=== PATIENT | male | born 1950 | race Caucasian/White ===

== ENCOUNTER 2018-01-19 17:32 | Inpatient (IN) | payer MEDICARE ==
[2018-01-19 17:40] VITALS: BP 112/73
[2018-01-19 20:33] LABS: CHOLESTEROL 104 mg/dL (<200); HDL -HIGH DENSITY LIPOPROTEIN 36 mg/dL (23-92); TRIGLYCERIDES 59 mg/dL (<150)
[2018-01-19] MEDS ORDERED: Magnesium Hydroxide (MOM) 30 mL UDC PO PRN (22:36)
--- NOTE | 2018-01-19 23:06 | Psychiatric Evaluation ---
DATE OF SERVICE: 01/19/2018 IDENTIFYING DATA: The patient is a 67-year-old male, currently homeless. Information obtained by directly interviewing the patient as well as reviewing the admission papers and they are reliable. JUSTIFICATION OF HOSPITALIZATION: The patient is admitted here on a 5150 as a danger to self. CHIEF COMPLAINT: "I have been feeling depressed and I wanted to end my life." HISTORY OF PRESENT ILLNESS: This is the first psychiatric hospitalization to this hospital for this patient who is reported to have ____ [facility]. The patient is feeling extremely depressed and wanted to end his life. The patient is reported to have sustained multiple losses in 1 year and is feeling frustrated. The patient is stating that he has been trying to cope with the stress and the patient is reported since he came from [place] from his granddaughter, he has been not able to find a place and has been homeless and has been getting easily depressed and is reporting that he started to self-medicate himself methamphetamine and the patient went to [facility] for a cardiac event where he has been stabilized and referred over here for stabilization. PAST PSYCHIATRIC HISTORY: Please refer to the above. MEDICAL HISTORY: Physical examination is requested to be done by Dr. Newell. SUBSTANCE ABUSE HISTORY: The patient has been using methamphetamine. SOCIAL HISTORY: The patient is currently homeless. LEGAL PROBLEMS: None at this time. STRENGTH AND ASSETS: The patient is motivated. MENTAL STATUS EXAMINATION: The patient is a 67-year-old, looking his stated age, superficially cooperative. Eye contact is poor. Mood is noted to be depressed. Affect is constricted. Insight and judgment at this time are noted to be impaired. Impulse control is noted to be limited. Coping skills are noted to be limited. The patient has been having difficult time to cope with the stress. The patient is suicidal at this time. No homicidal ideation is noted. No psychotic symptoms are noted. The patient is alert and oriented x 3. DIAGNOSTIC IMPRESSION: 1. Major depressive disorder, recurrent and severe. 1b: Methamphetamine abuse. AXIS II: None. AXIS III: As per Dr. Newell. IMMEDIATE TREATMENT PLAN: The patient is going to be started on the Lexapro and the patient is going to be closely monitored. Surgical Instrument Technician is going to be requested to look for placement. ESTIMATED LENGTH OF STAY: Three to five days. DISCHARGE CRITERIA: When the patient is no longer a threat to self or others and be able to cope up with the stress. [facility]# [id number]
[2018-01-20] MEDS: Pantoprazole 40 mg EC Tab PO SCH (06:42)
[2018-01-20] MEDS: Aspirin 81mg Chewable Tab PO SCH (08:32)
[2018-01-20] MEDS: Escitalopram Oxalate 5 mg Tab PO SCH (08:33)
[2018-01-20] MEDS ORDERED: LISINOPRIL 40 MG PO SCH (09:00)
[2018-01-20] MEDS ORDERED: Non-Formulary Item 1 EA (Pantoprazole Sodium [Protonix] 20 MG) PO SCH (09:00)
--- NOTE | 2018-01-20 14:16 | Progress Notes ---
DATE: 01/20/2018 SUBJECTIVE: Staff was spoken to. The patient is interviewed. Mood is noted to be irritable. Affect is constricted. Insight and judgment are noted to be impaired. Impulse control is noted to be poor. The patient is still depressed and has no place to return to, but the patient is insisting that he will be better off outside. ASSESSMENT: The patient is still impulsive and has a very high ____. PLAN: To continue the patient with the current medications. I encouraged the patient to verbalize the concerns rather than to act out. JOB# [id number]
--- NOTE | 2018-01-20 19:21 | Consultation ---
DATE OF CONSULTATION: INTERNAL MEDICINE CONSULTATION REFERRING PHYSICIAN: Flores Anand M.D. REASON FOR CONSULT: Medical management. HISTORY OF PRESENT ILLNESS: This is a 67-year-old gentleman with a history of atrial fibrillation, hypertension, CVA back in 2012, hepatitis C, history of pacemaker placement secondary to Mobitz type 2, history of BPH, who was admitted to [facility] secondary to suicidal ideation. The patient was admitted to that facility secondary to the above-mentioned complaint. He apparently stated that he wanted to drink antifreeze or jump into the front of a train. He was transferred to this facility for further management and care. He also apparently smoked crystal meth at a friend's house prior to being admitted to [facility]. Of note, he is apparently is also homeless. PAST MEDICAL HISTORY: As noted above. PAST SURGICAL HISTORY: Status post pacemaker placement, also has history of left hip surgery and right ankle surgery. FAMILY HISTORY: Likely noncontributory to this admission. SOCIAL HISTORY: He smokes about a pack a day, he has been doing that for many years. He denies alcohol, he occasionally drinks and he admits to cocaine and methamphetamine use. ALLERGIES: ALLERGIC TO PREGABALIN. OUTPATIENT MEDICATIONS: Aspirin 81 mg daily, atorvastatin 40 mg daily, Plavix 75 mg daily, ibuprofen 400 mg q.8h. p.r.n. for pain, lisinopril 40 mg daily, loratadine 10 mg daily, Protonix 20 mg daily, and Flomax 0.4 daily. REVIEW OF SYSTEMS: GENERAL: He denies any fever, chills or any recent weight loss. CARDIOVASCULAR: No chest pain, palpitations. PULMONARY: No cough or phlegm production. GASTROINTESTINAL: No bowel habit changes. GENITOURINARY: No bladder habit changes. NEUROLOGIC: No changes in vision, no headaches. Denies any syncope. PHYSICAL EXAMINATION: VITAL SIGNS: Temperature 97.0, pulse 77, respirations 20, BP 123/76, room air sats are 98%. GENERAL: He is alert, awake and oriented x 3, in no acute distress. He is well nourished and well developed. HEAD AND NECK: Normocephalic, atraumatic. Pupils reactive to light. Extraocular movements are intact. Oropharynx is moist and clear. CARDIAC: Regular rate and rhythm without any murmurs. S1, S2 are present. LUNGS: Clear to auscultation bilaterally. ABDOMEN: Soft, supple, nontender, nondistended, normoactive bowel sounds. EXTREMITIES: Lower extremities, there is no pedal edema. NEUROLOGIC: Grossly intact, nonfocal. Cranial nerves 2-12 within normal limits. LABORATORY DATA: From [place], white count 11.4, H and H 15/46 with a platelet count of 209. Chemistry showed a BUN of 30, otherwise within normal limits. LDL 60, HDL 36, cholesterol 104, and triglycerides 59. ASSESSMENT: 1. Major depressive disorder with suicidal ideation. 2. Polysubstance abuse. 3. Homelessness. 4. History of cerebrovascular accident. 5. History of essential hypertension. 6. History of benign prostatic hypertrophy. 7. History of acid reflux disease. 8. Nicotine dependence. 9. History of hepatitis C. 10. History of atrial fibrillation/arrhythmia, status post pacemaker placement. PLAN: The patient has been admitted to [facility] for further management and care. The patient will be kept on his current medications as scheduled. JOB# [id number] MTDMike
[2018-01-20] MEDS: Atorvastatin Calcium 10 MG TAB PO SCH (20:29)
[2018-01-20] MEDS ORDERED: Non-Formulary Item 1 EA (Atorvastatin Calcium [Lipitor] 40 MG) PO SCH (21:00)
[2018-01-21] MEDS: Pantoprazole 40 mg EC Tab PO SCH (06:35)
[2018-01-21] MEDS: Escitalopram Oxalate 5 mg Tab PO SCH (08:12)
[2018-01-21] MEDS: Aspirin 81mg Chewable Tab PO SCH (08:12)
--- NOTE | 2018-01-21 09:52 | Consultation ---
DATE OF CONSULTATION: 01/20/2018 REFERRING PHYSICIAN: Vinny Godwin MD TYPE OF CONSULTATION: Psychology. HISTORY OF PRESENT ILLNESS: The patient is a 67-year-old male. The patient is apparently homeless according to review of the medical record. The following is by patient's self report and record review. The patient is admitted here on a 5150 as a danger to self. Upon interview, the patient states that he is depressed and that he did want to end his life. The patient was transferred here from [facility] due to the patient's depression as well as his verbalization of suicidal ideation. The patient continued to state that he had traveled here from [place] to stay with his granddaughter. The patient states that he is homeless and unable to find a place to live. The patient did not state the set of circumstances surrounding his family. The patient admits that he had been using methamphetamine. Apparently, the patient was hospitalized at [facility] for a cardiac event and once stabilized, referred here for stabilization. The patient admits having suicidal ideation and intention. The patient was not specific about plan. The patient endorsed the item of wishing to . PAST MEDICAL HISTORY: Please see history and physical by Dr. Newell. PAST PSYCHIATRIC HISTORY: Unknown. Records are unavailable at the time of this clinical interview. SUBSTANCE ABUSE HISTORY: The patient admits to have been a longtime user of methamphetamine. The patient denied any alcohol use. The patient did not answer questions about tobacco use or other illicit drugs. PSYCHOSOCIAL HISTORY: The patient states that he has a granddaughter and one child. However, the patient was not disclosing about family relationships or family history. The patient is currently homeless. He did not answer questions about occupational or educational history or amish affiliation. The patient states no current legal problems. The patient denied any history of physical or sexual abuse. MENTAL STATUS EXAMINATION: The patient appears to be older than his stated age. Attitude is superficially cooperative. Eye contact is poor. Speech is pressured. Mood is depressed. Affect is constricted. Thought process shows to be tangential, but cognitively redirectable. The patient denied any auditory or visual hallucinations. The patient admits suicidal ideation with intention, but not specific as to plan. The patient openly endorses a wish to . The patient's behavior has been frustrated and is requesting to be discharged back to the streets. Impulse control is poor. Concentration is poor. Coping skills are limited. Sensorium is alert and oriented to person and place. The patient did not participate in the memory assessment. The patient did not participate in the interpretation of proverbs. Insight is poor. Judgment is compromised. DIAGNOSTIC IMPRESSION: AXIS I: 1. Major depressive disorder, recurrent, severe. 2. Methamphetamine abuse. AXIS II: Deferred. AXIS III: Per Dr. Newell. TREATMENT PLAN: The patient has been seen by Dr. Godwin for psychiatric evaluation and for the management of the patient's psychotropic medications. The patient is being started on Lexapro. flight attendant inflight services is actively looking for placement. We will provide reality orientation, differentiation and integration. We will provide motivational enhancement and motivational interviewing for the patient to be able to commit to abstinence from methamphetamine. We will recommend a sober living environment for the patient to deal with his substance abuse and dependence. We will provide coping strategies for phase of life issues. We will provide cognitive behavioral therapy for the patient's depression. We will continue to encourage the patient and motivate the patient through supportive therapy for abstinence and to commit to and participate in a treatment program. We will provide an opportunity daily for the patient to contract for safety and no self harm prior to discharge. Thank you, Dr. Godwin, for this consult and the opportunity to participate in this patient's care. JOB# [id number] STELLA
--- NOTE | 2018-01-21 17:06 | Consultation ---
DATE OF CONSULTATION: 01/21/2018 SUBJECTIVE: Staff was spoken to. The patient is interviewed. Mood is noted to be irritable. Affect is constricted. The patient is stating that he has been trying to figure it out why he has been having the forgetfulness and then he wants to figure it out and he wants to get into transcendental meditation. The patient's coping skills are noted to still poor. The patient's insight and judgment are also noted to be limited. ASSESSMENT: The patient is still depressed and paranoid and patient has no place to return to. PLAN: Plan to continue the patient with the supportive therapy. I encouraged the patient to verbalize the concerns rather than to act out. [facility]# [id number]
[2018-01-21] MEDS: Atorvastatin Calcium 10 MG TAB PO SCH (20:54)
[2018-01-22] MEDS: Pantoprazole 40 mg EC Tab PO SCH (06:44)
[2018-01-22] MEDS: Escitalopram Oxalate 5 mg Tab PO SCH (09:10)
[2018-01-22] MEDS: Aspirin 81mg Chewable Tab PO SCH (09:10)
--- NOTE | 2018-01-22 20:58 | Progress Notes ---
DATE: 01/22/2018 SUBJECTIVE: Staff was spoken to. The patient is interviewed. Mood is noted to be depressed. Affect is constricted. The patient's coping skills are noted to be poor. The patient is stating that he needs to figure it out why he has been losing his short term memory. No side effects to the medications are noted. The patient has started to participate in the groups and the patient has been able to verbalize the concerns rather than to act out. ASSESSMENT: The patient is still paranoid and depressed. PLAN: To continue the patient with the risperidone and trazodone. Encouraged the patient to verbalize the concerns rather than to act out. JOB# [id number]
[2018-01-23] MEDS: Pantoprazole 40 mg EC Tab PO SCH (06:49)
[2018-01-23] MEDS: Escitalopram Oxalate 5 mg Tab PO SCH (08:54)
[2018-01-23] MEDS: Aspirin 81mg Chewable Tab PO SCH (08:54)
--- NOTE | 2018-01-23 11:17 | Progress Notes ---
DATE: 01/23/2018 SUBJECTIVE: Staff was spoken to. The patient is interviewed. Mood is noted to be irritable. Affect is constricted. The patient is stating that he has been working with the correctional case manager with regard to finding a place and so far there is no luck. The patient is also reporting that he has only Medicare and he needs to apply for a MediCal to get funding. ASSESSMENT: The patient is still depressed and awaiting placement. PLAN: The patient with supportive therapy, encouraged the patient to verbalize the concerns rather than to act out. JOB# [id number]
[2018-01-24] MEDS: Pantoprazole 40 mg EC Tab PO SCH (06:34)
[2018-01-24] MEDS: Aspirin 81mg Chewable Tab PO SCH (09:08)
[2018-01-24] MEDS: Escitalopram Oxalate 5 mg Tab PO SCH (09:08)
--- NOTE | 2018-01-24 22:01 | Progress Notes ---
DATE: 01/24/2018 PSYCHIATRIC PROGRESS NOTE SUBJECTIVE: Staff was spoken to. The patient is interviewed. Mood is noted to be irritable. Affect is constricted. The patient's coping skills are noted to be still poor. The patient has been having difficult time to cope with the stress. The patient is stating that he is trying to cope with the stress in here. The patient has been alert, having difficult time to accept that he has no place to return to. The patient's labs on meth is noted to be very high. ASSESSMENT: The patient is still depressed and paranoid. PLAN: To increase the dose on the Lexapro to 10 mg and continue Risperdal and follow the patient up. JOB# [id number]
[2018-01-25] MEDS: Pantoprazole 40 mg EC Tab PO SCH (06:37)
[2018-01-25] MEDS: Aspirin 81mg Chewable Tab PO SCH (08:39)
[2018-01-25] MEDS ORDERED: Escitalopram Oxalate 5 mg Tab PO SCH (09:00)
--- NOTE | 2018-01-25 12:30 | Progress Notes ---
DATE: 01/25/2018 SUBJECTIVE: Staff was spoken to. The patient is interviewed. Mood is noted to be irritable. Affect is constricted. Coping skills at this time are noted to be still poor. Sleep and appetite are also noted to be poor. The patient has been stating that he needed to be in high dose of medication for his memory. No major behavioral problems are noted and the patient has a place to return to. The patient is being closely monitored at this time and I encouraged to verbalize the concerns rather than to act out. The patient has been waiting for placement at this time. The patient is currently on escitalopram 10 mg and has been able to tolerate. ASSESSMENT: The patient is still depressed and is awaiting placement. PLAN: To continue the patient with the supportive therapy and followup. [facility]# [id number]
[2018-01-26] MEDS: Pantoprazole 40 mg EC Tab PO SCH (06:40)
[2018-01-26] MEDS: Aspirin 81mg Chewable Tab PO SCH (09:44)
--- NOTE | 2018-01-26 12:10 | Progress Notes ---
DATE: 01/26/2018 SUBJECTIVE: Staff was spoken to. The patient is interviewed. Mood is noted to be irritable. Affect is constricted. Insight and judgment are noted to be improving. Impulse control seems to be fair. The patient is waiting for placement and so far. The patient has been able to participate in the groups and verbalize the concerns. The patient is feeling bad about his situation. Mood is noted to be less irritable. Affect is getting a little bit appropriate. The patient's suicidal ideation is resolving at this time. No side effects to the medications are noted. ASSESSMENT: The patient is stabilizing and depression is resolving. PLAN: To continue the patient with the supportive therapy and await for placement. [facility]# [id number]
[2018-01-27] MEDS: Pantoprazole 40 mg EC Tab PO SCH (06:42)
[2018-01-27] MEDS: Aspirin 81mg Chewable Tab PO SCH (08:31)
--- NOTE | 2018-01-27 10:41 | General Progress Note ---
Subjective - Review of Systems Service Date: 01/27/18 Subjective: Patient is confused Objective - Results Recent Labs: Laboratory Last Values Triglycerides 59 mg/dL (<150) 01/19/18 20:10 Cholesterol 104 mg/dL (<200) 01/19/18 20:10 LDL Cholesterol Direct 60 mg/dL (75-193) L 01/19/18 20:10 HDL Cholesterol 36 mg/dL (23-92) 01/19/18 20:10 - Physical Exam Vitals and I&O: Vital Signs Temp 98.1 F 01/27/18 06:25 Pulse 68 01/27/18 08:32 Resp 19 01/27/18 06:25 BP 168/75 01/27/18 08:32 Pulse Ox 97 01/27/18 06:25 Intake & Output 01/26/18 01/27/18 01/27/18 18:59 06:59 18:59 Intake Total 1200 Balance 1200 Intake: Oral 1200 Other: # Bowel Movements 1 Active Medications: Current Medications Acetaminophen (Tylenol) 650 mg PO Q4HR PRN PRN Reason: Pain or Fever >101 Stop: 03/20/18 21:01 Last Admin: 01/19/18 21:14 Dose: 650 mg Aspirin (Aspirin Chewable) 81 mg PO DAILY [facility] Stop: 03/21/18 08:59 Last Admin: 01/27/18 08:31 Dose: 81 mg Atorvastatin Calcium (Lipitor) 40 mg PO HS [facility]; Protocol Stop: 03/21/18 20:59 Last Admin: 01/26/18 20:54 Dose: 40 mg Clopidogrel Bisulfate (Plavix) 75 mg PO DAILY [facility] Stop: 03/21/18 08:59 Last Admin: 01/27/18 08:32 Dose: 75 mg Escitalopram Oxalate (Lexapro) 10 mg PO DAILY [facility]; Protocol Stop: 03/27/18 08:59 Last Admin: 01/27/18 08:32 Dose: 10 mg Ibuprofen (Motrin) 400 mg PO Q8HR PRN PRN Reason: Pain (Mild) Stop: 03/20/18 22:28 Last Admin: 01/25/18 15:03 Dose: 400 mg Lisinopril (Zestril) 40 mg PO DAILY [facility] Stop: 03/21/18 08:59 Last Admin: 01/27/18 08:32 Dose: 40 mg Loratadine (Claritin) 10 mg PO DAILY [facility] Stop: 03/21/18 08:59 Last Admin: 01/27/18 08:31 Dose: 10 mg Lorazepam (Ativan) 0.5 mg PO Q6HR PRN; Protocol PRN Reason: Anxiety Stop: 03/20/18 19:08 Magnesium Hydroxide (Milk Of Magnesia) 30 ml PO HS PRN PRN Reason: Constipation Pantoprazole Sodium (Protonix) 40 mg PO QDAC [facility] Stop: 03/21/18 07:29 Last Admin: 01/27/18 06:42 Dose: 40 mg Risperidone (Risperdal) 1 mg PO HS [facility]; Protocol Stop: 03/20/18 20:59 Last Admin: 01/26/18 20:55 Dose: 1 mg Tamsulosin HCl (Flomax) 0.4 mg PO DAILY [facility] Stop: 03/21/18 08:59 Last Admin: 01/27/18 08:32 Dose: 0.4 mg Tramadol HCl (Ultram) 50 mg PO Q6HR PRN PRN Reason: SEVERE PAIN Stop: 03/23/18 10:17 Last Admin: 01/24/18 10:44 Dose: 50 mg Trazodone HCl (Desyrel) 50 mg PO HS [facility]; Protocol Stop: 03/20/18 20:59 Last Admin: 01/26/18 20:54 Dose: 50 mg Zolpidem Tartrate (Ambien) 5 mg PO HS PRN PRN Reason: Insomnia Stop: 03/20/18 19:09 General: Alert HEENT: Atraumatic Neck: Supple Cardiovascular: Regular rate Lungs: Clear to auscultation Abdomen: Bowel sounds, Soft Extremities: Other (No edema) Neurological: Normal gait, Other Skin: Other (Warm and dry) Assessment/Plan - Assessment Assessment: Patient is awake, alert, calm in no acute distress - Plan Plan: Patient is follow by Psychiatry. Will continue to monitor Nutritional Asmnt/Malnutr-PDOC - Dietary Evaluation Malnutrition Findings (Please click <Entered> for more info): Nutritional Asmnt/Malnutrition Start: 01/23/18 14: 44 Text: Status: Active Freq: Protocol: Document 01/23/18 14:45 SHAY (Rec: 01/23/18 15:16 SHAY [email or web address]) Nutritional Asmnt/Malnutrition Patient General Information Nutritional Screening Moderate Risk Diagnosis psychosis Pertinent Medical Hx/Surgical Hx Per nursing note: hx of CVA, pacemaker and stent placement, benign prostatic hypertrophy, htn, atrial fibrillation Subjective Information Pt was seen eating lunch in dining room at time of visit. Pt was observed to have finished 100% of lunch. Pt provided food preferences. Per EMR, PO intake 100%. Current Diet Order/ Nutrition Support cardiac Pertinent Medications lipitor, protonix Pertinent Labs 01/19 LDL 60 Nutritional Hx/Data Height 1.73 m Height (Calculated Centimeters) 172.7 Current Weight (lbs) 88.451 kg Weight (Calculated Kilograms) 88.5 Weight (Calculated Grams) 14883.5 [place] Body Weight 154 lb Body Mass Index (BMI) 29.6 Weight Status Overweight GI Symptoms GI Symptoms None Last BM 01/22 Difficult in: None Food Allergies No Skin Integrity/Comment: dryness Current %PO Good (75-100%) Estimated Nutritional Goals BEE in Kcals: Using Current wt Calories/Kcals/Kg 23-27 Kcals Calculated 6329-2299 Protein: Using Current wt Protein g/k Protein Calculated 89 g Fluid: ml 2294-0314 (1 ml/kcal) Nutritional Problem No current Nutrition Prob Problem N/A Malnutrition Alert Is there a minimum of two criteria No selected? Query Text:Check all the applicable criteria. A minimum of two criteria are recommended for diagnosis of either severe or non-severe malnutrition. Malnutrition Related to Morbid Obesity Malnutrition related to morbid obesity No Intervention/Recommendation Comments 1. Continue with cardiac diet as ordered 2. Monitor PO intake, wt, labs , and skin integrity 3. F/U as low risk in 7 days, 01/30 Expected Outcomes/Goals Expected Outcomes/Goals 1. PO intake to meet at least 75% of nutritional needs 2. Wt stability, skin to remain intact, labs to stay wnl Reviewed by Peace Kramer RD
--- NOTE | 2018-01-27 16:05 | Progress Notes ---
DATE: 01/27/2018 SUBJECTIVE: Staff was spoken to. The patient is interviewed. Mood is noted to be less irritable. Affect is constricted. The patient is pacing on the unit. The patient's coping skills are noted to be still poor. The patient has no place to return to. The patient talks about having short-term memory problems, but long-term memory seems to be intact. ASSESSMENT: The patient is still depressed and gravely disabled. PLAN: To continue the patient with the supportive therapy. Continue current medications. I encouraged the patient to verbalize the concern rather than to act out. JOB# [id number]
[2018-01-28] MEDS: Pantoprazole 40 mg EC Tab PO SCH (06:44)
[2018-01-28] MEDS: Aspirin 81mg Chewable Tab PO SCH (08:50)
--- NOTE | 2018-01-28 09:41 | General Progress Note ---
Subjective - Review of Systems Service Date: 01/28/18 Subjective: Patient is confused Objective - Results Recent Labs: Laboratory Last Values Triglycerides 59 mg/dL (<150) 01/19/18 20:10 Cholesterol 104 mg/dL (<200) 01/19/18 20:10 LDL Cholesterol Direct 60 mg/dL (75-193) L 01/19/18 20:10 HDL Cholesterol 36 mg/dL (23-92) 01/19/18 20:10 - Physical Exam Vitals and I&O: Vital Signs Temp 97.9 F 01/27/18 14:00 Pulse 88 01/27/18 14:00 Resp 20 01/28/18 07:53 BP 103/61 01/28/18 08:51 Pulse Ox 96 01/27/18 14:00 Intake & Output 01/27/18 01/28/18 01/28/18 18:59 06:59 18:59 Intake Total 1200 Balance 1200 Intake: Oral 1200 Other: # Bowel Movements 1 Active Medications: Current Medications Acetaminophen (Tylenol) 650 mg PO Q4HR PRN PRN Reason: Pain or Fever >101 Stop: 03/20/18 21:01 Last Admin: 01/19/18 21:14 Dose: 650 mg Aspirin (Aspirin Chewable) 81 mg PO DAILY [facility] Stop: 03/21/18 08:59 Last Admin: 01/28/18 08:50 Dose: 81 mg Atorvastatin Calcium (Lipitor) 40 mg PO HS [facility]; Protocol Stop: 03/21/18 20:59 Last Admin: 01/27/18 21:05 Dose: 40 mg Clopidogrel Bisulfate (Plavix) 75 mg PO DAILY [facility] Stop: 03/21/18 08:59 Last Admin: 01/28/18 08:50 Dose: 75 mg Escitalopram Oxalate (Lexapro) 10 mg PO DAILY [facility]; Protocol Stop: 03/27/18 08:59 Last Admin: 01/28/18 08:51 Dose: 10 mg Ibuprofen (Motrin) 400 mg PO Q8HR PRN PRN Reason: Pain (Mild) Stop: 03/20/18 22:28 Last Admin: 01/25/18 15:03 Dose: 400 mg Lisinopril (Zestril) 40 mg PO DAILY [facility] Stop: 03/21/18 08:59 Last Admin: 01/28/18 08:51 Dose: Not Given Loratadine (Claritin) 10 mg PO DAILY [facility] Stop: 03/21/18 08:59 Last Admin: 01/28/18 08:51 Dose: 10 mg Lorazepam (Ativan) 0.5 mg PO Q6HR PRN; Protocol PRN Reason: Anxiety Stop: 03/20/18 19:08 Magnesium Hydroxide (Milk Of Magnesia) 30 ml PO HS PRN PRN Reason: Constipation Pantoprazole Sodium (Protonix) 40 mg PO QDAC [facility] Stop: 03/21/18 07:29 Last Admin: 01/28/18 06:44 Dose: 40 mg Risperidone (Risperdal) 1 mg PO HS [facility]; Protocol Stop: 03/20/18 20:59 Last Admin: 01/27/18 21:06 Dose: 1 mg Tamsulosin HCl (Flomax) 0.4 mg PO DAILY [facility] Stop: 03/21/18 08:59 Last Admin: 01/28/18 08:51 Dose: 0.4 mg Tramadol HCl (Ultram) 50 mg PO Q6HR PRN PRN Reason: SEVERE PAIN Stop: 03/23/18 10:17 Last Admin: 01/27/18 10:49 Dose: 50 mg Trazodone HCl (Desyrel) 50 mg PO HS [facility]; Protocol Stop: 03/20/18 20:59 Last Admin: 01/27/18 21:07 Dose: 50 mg Zolpidem Tartrate (Ambien) 5 mg PO HS PRN PRN Reason: Insomnia Stop: 03/20/18 19:09 General: Alert HEENT: Atraumatic Neck: Supple Cardiovascular: Regular rate Lungs: Clear to auscultation Abdomen: Bowel sounds, Soft Extremities: Other (No edema) Neurological: Normal gait, Other Skin: Other (Warm and dry) Assessment/Plan - Assessment Assessment: Patient is awake, alert, calm in no acute distress - Plan Plan: Patient is follow by Psychiatry. Will continue to monitor Nutritional Asmnt/Malnutr-PDOC - Dietary Evaluation Malnutrition Findings (Please click <Entered> for more info): Nutritional Asmnt/Malnutrition Start: 01/23/18 14: 44 Text: Status: Active Freq: Protocol: Document 01/23/18 14:45 SHAY (Rec: 01/23/18 15:16 [email or web address]) Nutritional Asmnt/Malnutrition Patient General Information Nutritional Screening Moderate Risk Diagnosis psychosis Pertinent Medical Hx/Surgical Hx Per nursing note: hx of CVA, pacemaker and stent placement, benign prostatic hypertrophy, htn, atrial fibrillation Subjective Information Pt was seen eating lunch in dining room at time of visit. Pt was observed to have finished 100% of lunch. Pt provided food preferences. Per EMR, PO intake 100%. Current Diet Order/ Nutrition Support cardiac Pertinent Medications lipitor, protonix Pertinent Labs 01/19 LDL 60 Nutritional Hx/Data Height 1.73 m Height (Calculated Centimeters) 172.7 Current Weight (lbs) 88.451 kg Weight (Calculated Kilograms) 88.5 Weight (Calculated Grams) 06988.5 [place] Body Weight 154 lb Body Mass Index (BMI) 29.6 Weight Status Overweight GI Symptoms GI Symptoms None Last BM 01/22 Difficult in: None Food Allergies No Skin Integrity/Comment: dryness Current %PO Good (75-100%) Estimated Nutritional Goals BEE in Kcals: Using Current wt Calories/Kcals/Kg 23-27 Kcals Calculated 6036-6529 Protein: Using Current wt Protein g/k Protein Calculated 89 g Fluid: ml 4292-2623 (1 ml/kcal) Nutritional Problem No current Nutrition Prob Problem N/A Malnutrition Alert Is there a minimum of two criteria No selected? Query Text:Check all the applicable criteria. A minimum of two criteria are recommended for diagnosis of either severe or non-severe malnutrition. Malnutrition Related to Morbid Obesity Malnutrition related to morbid obesity No Intervention/Recommendation Comments 1. Continue with cardiac diet as ordered 2. Monitor PO intake, wt, labs , and skin integrity 3. F/U as low risk in 7 days, 01/30 Expected Outcomes/Goals Expected Outcomes/Goals 1. PO intake to meet at least 75% of nutritional needs 2. Wt stability, skin to remain intact, labs to stay wnl Reviewed by Peace Kramer RD
--- NOTE | 2018-01-28 20:45 | Progress Notes ---
DATE: 01/28/2018 PSYCHIATRIC PROGRESS NOTE SUBJECTIVE: Staff was spoken to. The patient is interviewed. Mood is noted to be irritable. Affect is constricted. The patient is getting frustrated that he is not able to find a place. No side effects to the medications are noted. The patient is pacing on the unit. The patient is compliant with the medication and seems to be fair. No side effects are noted. Sleep and appetite are also noted to be improving. ASSESSMENT: The patient is stabilizing and awaiting placement. PLAN: To continue the patient with supportive therapy. I encouraged the patient to verbalize the concerns rather than to act out. JOB# [id number]
[2018-01-29] MEDS: Pantoprazole 40 mg EC Tab PO SCH (06:47)
[2018-01-29] MEDS: Aspirin 81mg Chewable Tab PO SCH (08:30)
--- NOTE | 2018-01-30 02:18 | Progress Notes ---
DATE: 01/29/2018 SUBJECTIVE: Staff was spoken to. The patient is interviewed. Mood is noted to be anxious. Affect is appropriate. The patient is not suicidal or homicidal. Insight and judgment to be fair. Impulse control is also noted to be fair. The patient has been ____ medications. No side effects to the medications are noted. ASSESSMENT: The patient is stabilizing. PLAN: To continue the patient with the supportive therapy, encouraged the patient to verbalize the concerns rather than to act out. JOB# [id number]
[2018-01-30] MEDS: Pantoprazole 40 mg EC Tab PO SCH (06:37)
[2018-01-30] MEDS: Aspirin 81mg Chewable Tab PO SCH (08:45)
--- NOTE | 2018-01-30 12:40 | Progress Notes ---
DATE: 01/30/2018 SUBJECTIVE: Staff was spoken to. The patient is interviewed. Mood is noted to be anxious. Affect is appropriate. Not suicidal or homicidal. Insight and judgment are noted to be improving and impulse control seems to be fair. Coping skills are noted to be fair. No side effects to the medications are noted. ASSESSMENT: The patient is stabilizing. PLAN: To discharge the patient today for followup on outpatient basis. [facility]# [id number]
== END 2018-01-30 15:45 | DRG 885 ==
LOC: GERO 17:32
DX: F33.2 Major depressive disorder, recurrent severe without psychotic features (principal); B19.20 Unspecified viral hepatitis C without hepatic coma; F15.19 Other stimulant abuse with unspecified stimulant-induced disorder; F19.90 Other psychoactive substance use, unspecified, uncomplicated; I48.91 Unspecified atrial fibrillation; I10 Essential (primary) hypertension; N40.0 Benign prostatic hyperplasia without lower urinary tract symptoms; F17.210 Nicotine dependence, cigarettes, uncomplicated; K21.9 Gastro-esophageal reflux disease without esophagitis; Z59.0 Homelessness; Z86.19 Personal history of other infectious and parasitic diseases; Z88.8 Allergy status to other drugs, medicaments and biological substances; Z86.73 Personal history of transient ischemic attack (TIA), and cerebral infarction without residual deficits; Z95.0 Presence of cardiac pacemaker
CPT/HCPCS: 36415-UA; 80061-TC; 83036-90; 90899; G0410; Z7610